=== PATIENT | male | born 1960 | race African-American/Black ===

== ENCOUNTER 2017-02-14 14:45 | Emergency (ER) | payer SELFPAY ==
[~2017-02-14] VITALS: Ht 162.6 cm; Wt 74.2 kg
[~2017-02-14 14:45] MED LIST: CLIN1CAP5 PO; LORT5TAB PO; LORTA5 PO; SULF1TAB47 PO
[2017-02-14 14:52] VITALS: BP 180/107; PULSE 76; RESP 16; TEMP 98.3; O2SAT 98
[2017-02-14] MEDS ORDERED: ROBA750T PO (16:22)
[2017-02-14] MEDS ORDERED: IBUP-232 PO (16:22)
--- NOTE | 2017-02-14 16:29 | PD ---
HPI Chief Complaint: Musculoskeletal Complaint Time Seen by Provider: 16:22 Travel History International Travel<30 days: No Contact w/Intl Traveler<30days: No Traveled to known affect area: No History of Present Illness HPI 56-year-old male presents to the emergency room for evaluation of right upper extremity pain for the past several months. He denies trauma but reports possible injury to the shoulder 4 months ago. At that time, patient was carrying a heavy piece of furniture when his friend dropped his side causing all of the weight to end up in his right arm. He had immediate shoulder pain at that time but now it is intermittent. Patient states since injuring it, certain range of motion causes pain in his shoulder. He has unrelated forearm pain with certain range of motion. He has been taking BC powder and Aleve without significant relief in symptoms. Patient denies paresthesias or decrease in strength. PFSH Past Medical History Immunizations Current: Yes Migraines: Yes Past Surgical History Other Surgery: Yes (REMOVAL OF CYST ON SCALP) Social History Alcohol Use: Yes (3 BEERS A DAY) Tobacco Use: No Substance Use: No Allergies-Medications (Allergen,Severity, Reaction): Coded Allergies: No Known Allergies (Verified , 02/14/17) Reported Meds & Prescriptions Reported Meds & Active Scripts Active Ibuprofen 600 Mg Tab 600 Mg PO Q8HR PRN Robaxin (Methocarbamol) 750 Mg Tab 750 Mg PO Q8HR Review of Systems Except as stated in HPI: all other systems reviewed are Neg Physical Exam Narrative GENERAL: Well-nourished, well-developed male in no acute distress. Afebrile. Ambulatory. SKIN: Focused skin assessment warm/dry. No erythema or ecchymosis. HEAD: Normocephalic. EYES: No scleral icterus. No injection or drainage. NECK: Supple, trachea midline. No JVD or lymphadenopathy. CARDIOVASCULAR: Regular rate and rhythm without murmurs, gallops, or rubs. RESPIRATORY: Breath sounds equal bilaterally. No accessory muscle use. EXTREMITY: Mild tenderness to palpation of the anterior humeral head. Full range of motion in all joints. No edema. 2+ radial pulse. Radial, ulnar, and median nerves intact. Patient has positive Abhijit sign. Negative Tinel and Phalen's sign. Data Data Last Documented VS Vital Signs Date Time Temp Pulse Resp B/P Pulse Ox O2 Delivery O2 Flow Rate FiO2 02/14/17 16:30 79 16 189/108 02/14/17 14:52 98.3 98 MDM Medical Decision Making Medical Screen Exam Complete: Yes Emergency Medical Condition: Yes Medical Record Reviewed: Yes Differential Diagnosis Sprain versus strain versus tendinitis Narrative Course 56-year-old male presents to the emergency room for evaluation of nonspecific right arm pain for the past 4 months. Patient cannot localize pain. Physical exam is unremarkable. Right upper extremity is neurovascularly intact with 2+ radial pulse. Radial, ulnar, and median nerves intact. He has full range of motion. During some of the exam patient is completely unaffected by pain but other times he is extremely tender to light palpation; same with range of motion. No indication for imaging. Could be a rotator cuff injury or tendinitis. He was discharged with prescriptions for ibuprofen and Robaxin. Patient told to follow-up with his primary care physician or return for worsening symptoms. He understands and agrees to plan. Diagnosis Primary Impression: Right arm pain Referrals: Primary Care Physician Patient Instructions: Arm Pain (ED), General Instructions Additional Instructions: Rest and drink plenty of fluids. Take Robaxin as directed, as needed for pain. Take ibuprofen with food as directed, as needed for pain. Apply ice to the affected area for 20 minutes at a time, as needed for pain and swelling. Maintain range of motion of the shoulder. Follow-up with a primary care physician. Return to the emergency room for worsening symptoms. Med/Other Pt SpecificInfo: Prescription(s) given Scripts Ibuprofen 600 Mg [id number] Mg PO Q8HR PRN (PAIN) #15 TAB Ref 0 Prov:Raman Moscoso MD 02/14/17 Methocarbamol (Robaxin)750 Mg [id number] Mg PO Q8HR #15 TAB Ref 0 Prov:Raman Moscoso MD 02/14/17 Disposition: 01 DISCHARGE HOME Condition: Stable Kimberly Lezama Feb 14, 2017 16:29
[2017-02-14 16:30] VITALS: BP 189/108; PULSE 79; RESP 16
== END 2017-02-14 16:41 | disposition home or self-care (01) ==
LOC: PHEFT 14:45
DX: M79.601 Pain in right arm (principal)
CPT/HCPCS: 99283

== ENCOUNTER 2017-07-03 08:33 | Emergency (ER) | payer OTHER ==
[~2017-07-03] VITALS: Ht 175.3 cm; Wt 77.0 kg
[~2017-07-03 08:33] MED LIST changes: +AMLO5TAB2 PO; -CLIN1CAP5 PO; -LORT5TAB PO; -LORTA5 PO; +ROBA500T PO; -SULF1TAB47 PO
[2017-07-03 08:36] VITALS: BP 174/97; PULSE 73; RESP 18; TEMP 98.5; O2SAT 99
[2017-07-03] MEDS ORDERED: IBUP1TAB5 PO (08:44)
--- NOTE | 2017-07-03 08:52 | PD ---
HPI Chief Complaint: Pain: Acute or Chronic Time Seen by Provider: 08:40 Travel History International Travel<30 days: No Contact w/Intl Traveler<30days: No Traveled to known affect area: No History of Present Illness HPI This 56-year-old male is complaining of pain in his right foot and ankle. The pain started yesterday while working. He noted that it was worse with certain movements. Painful when he woke up this morning trouble walking today he says he had a similar pain in his left foot about 2 weeks ago. It lasted for about 2 days and the left leg. He says that several months ago he had some pain in his wrist which also resolved spontaneously. He does not recall swollen. He has not had fever or chills. He denies urethral discharge or dysuria. He is generally healthy [facility] Past Medical History Diminished Hearing: No Immunizations Current: Yes Migraines: Yes Influenza Vaccination: No ?: Not Past Surgical History Other Surgery: Yes (REMOVAL OF CYST ON SCALP) Social History Alcohol Use: Yes (3 BEERS A DAY) Tobacco Use: No Substance Use: No Allergies-Medications (Allergen,Severity, Reaction): Coded Allergies: No Known Allergies (Verified Adverse Reaction, Unknown, 07/03/17) Reported Meds & Prescriptions Reported Meds & Active Scripts Active Reported Ibuprofen 400 Mg Tab 400 Mg PO Q4H PRN Review of Systems General / Constitutional: No: Fever, Chills HENT: No: Headaches, Vertigo Cardiovascular: No: Chest Pain or Discomfort Respiratory: No: Shortness of Breath Gastrointestinal: No: Vomiting, Diarrhea Genitourinary: No: Dysuria Musculoskeletal: Positive: Arthralgias, Edema Skin: No Rash Neurologic: No: Weakness Physical Exam Narrative GENERAL: Well-developed male SKIN: Focused skin assessment warm/dry. HEAD: Atraumatic. Normocephalic. EYES: Pupils equal and round. No scleral icterus. No injection or drainage. ENT: No nasal bleeding or discharge. Mucous membranes pink and moist. NECK: Trachea midline. No JVD. GASTROINTESTINAL: Abdomen soft, non-tender, nondistended. Hepatic and splenic margins not palpable. MUSCULOSKELETAL: No obvious deformities. No clubbing. No cyanosis. No edema. Right ankle shows some swelling both medially and laterally of the ankle with some mild warmth. There are good pulses. There is also some tenderness along the plantar surface of the foot NEUROLOGICAL: Awake and alert. No obvious cranial nerve deficits. Motor grossly within normal limits. Normal speech. PSYCHIATRIC: Appropriate mood and affect; insight and judgment normal. Data Data Last Documented VS Vital Signs Date Time Temp Pulse Resp B/P (MAP) Pulse Ox O2 Delivery O2 Flow Rate FiO2 07/03/17 08:36 98.5 73 18 174/97 (122) 99 Orders Orders Prednisone (Deltasone) (07/03/17 09:00) Ankle, Complete ([id number]) (07/03/17 08:48) MDM Medical Decision Making Medical Screen Exam Complete: Yes Emergency Medical Condition: Yes Differential Diagnosis Differential includes septic arthritis, migratory polyarthritis, inflammatory arthritis Narrative Course X-ray of the foot is negative. Patient appears to be having migratory polyarthritis. There is no history suggestive of gonococcal disease and he does not have the skin lesions. He has taken ibuprofen without relief. He'll be given a Medrol Dosepak recommendations that he follow-up with his own medical doctor Diagnosis Primary Impression: Arthritis of right ankle Scripts Methylprednisolone Dosepak (Medrol Dosepak) 4 Mg Dspk 4 MG PO DIRECTED, #1 DSPK 0 Refills Per Pharmacist direction Prov: Raman Moscoso MD 07/03/17 Disposition: DISCHARGE HOME Condition: Stable Raman Moscoso MD Jul 03, 2017 08:52
[2017-07-03] MEDS ORDERED: predniSONE 20 MG TAB PO ONE (09:00)
--- NOTE | 2017-07-03 09:25 | RADRPT ---
EXAM DATE/TIME: 07/03/2017 09:08 [facility] COMPARISON: No previous studies available for comparison. INDICATIONS : Right ankle pain and stiffness, no known injury. MEDICAL HISTORY : None. SURGICAL HISTORY : None. ENCOUNTER: Initial ACUITY: 3 days PAIN SCORE: 8/10 LOCATION: Right ankle FINDINGS: Three view exam was performed of the right ankle. The bony structures are in normal alignment. No e vidence of fracture, dislocation, or soft tissue swelling. The ankle mortise is intact. No radiopaq ue foreign bodies are seen. Bony mineralization is normal. CONCLUSION: Negative exam. Dru Rooney MD on July 03, 2017 at 9:23 Board Certified Radiologist. This report was verified electronically.
[2017-07-03] MEDS ORDERED: MEDR4PAK PO (09:27)
== END 2017-07-03 09:42 | disposition home or self-care (01) ==
LOC: PHEFT 08:33
DX: M19.071 Primary osteoarthritis, right ankle and foot (principal)
CPT/HCPCS: 73610; 99283; J7512